=== PATIENT | female | born 1985 | race Caucasian/White ===

== ENCOUNTER → 2021-11-21 08:22 | Outpatient (BNVA) | payer BC, SELFPAY | PROVIDERS: Family Provider Family Medicine; PCP Family Medicine; Visit Provider Family Medicine | DX: Z51.81 Encounter for therapeutic drug level monitoring (principal); Z79.1 Long term (current) use of non-steroidal anti-inflammatories (NSAID); Z00.00 Encounter for general adult medical examination without abnormal findings; R53.81 Other malaise; R53.83 Other fatigue | CPT/HCPCS: 80053; 84443; 85025 ==

== ENCOUNTER → 2022-08-05 12:49 | Outpatient (BNVA) | payer BC, SELFPAY | PROVIDERS: Family Provider Family Medicine; PCP Family Medicine; Visit Provider Family Medicine | DX: Z01.419 Encounter for gynecological examination (general) (routine) without abnormal findings (principal); Z51.81 Encounter for therapeutic drug level monitoring; Z13.220 Encounter for screening for lipoid disorders | CPT/HCPCS: 88175 ==

== ENCOUNTER → 2022-09-13 10:27 | Outpatient (BNVA) | payer BC, SELFPAY | PROVIDERS: Family Provider Family Medicine; PCP Family Medicine; Visit Provider Family Medicine | DX: Z13.220 Encounter for screening for lipoid disorders (principal); Z51.81 Encounter for therapeutic drug level monitoring | CPT/HCPCS: 80053; 80061; 85025 ==

== ENCOUNTER 2022-10-16 08:16 | Emergency (ER) | payer BC, SELFPAY ==
--- NOTE | 2022-10-16 08:32 | XR_ITS ---
WS: [id number] Exam: XR chest 1V portable [id number] Date/Time of Exam: 10/16/2022 8:33 AM Reason For Exam: chest pain No priors. The lungs are clear and fully inflated. Normal cardiomediastinal silhouette for technique. No pleural effusions. Regional bony structures are intact. Monitoring leads superimpose the chest. XR/XR chest 1V portable [id number] IMPRESSION: 1. No acute cardiopulmonary finding.
--- NOTE | 2022-10-16 08:33 | ECG_ITS ---
[facility] Test Date: 2022-10-16 Pat Name: Chio Kidd Department: Room: Gender: Female Record Retrieval Specialist: : 1985 Requested By: Doris Peña Order Number: [id number] Babcock MD: Augustine Gonzales M.D. Measurements Intervals [place] Rate: 67 P: 52 CT: 138 QRS: 29 QRSD: 88 T: 41 QT: 370 QTc: 391 Interpretive Statements SINUS RHYTHM No previous ECG available for comparison Electronically Signed On 10-16-2022 10:58:20 CDT by Augustine Gonzales M.D. [email or web address]
--- NOTE | 2022-10-16 08:33 | ED_ITS ---
HPI - Chest Pain General: Chief Complaint: Chest Pain Stated Complaint: left side pain in chest Time Seen by Provider: 10/16/22 08:17 Source: patient Mode of arrival: ambulatory Limitations: no limitations History of Present Illness: Patient is a 37-year-old female presents to ED today with a complaint of left- sided chest pain that began at roughly 1:30 AM this morning. Patient states pain has been fairly constant since onset. She does feel like the left arm is experiencing some paresthesias. Patient states she is hoping it is just a strained muscle as she has been lifting weights and did chest day on Friday. She states she does not overly feel short of breath. 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 She does not complain of any lower extremity swelling or calf pain. No previous cardiac or pulmonary history. She has not noticed any color or temperature changes to her upper extremities. MD complaint: chest discomfort Onset (ago): hour(s) Timing of current episode: constant Prior episodes: No Onset: during rest Pain location: left chest Pain radiation: left arm Quality: aching Relieving factors: nothing Exacerbating factors: nothing Context: recent travel Associated symptoms: Deny abdominal pain, dyspnea, fever(s), nausea, palpitations, syncope or vomiting Treatment prior to arrival: none Risk Factors: Coronary artery disease risk factors: none Thoracic aortic dissection risk factors: none Related Data: On Oral Contraceptives: No Review of Systems Const: Denies: fever(s), chills, body aches, fatigue or malaise Eyes: Denies: change in vision or blurry vision Card: Reports: chest pain; Denies: palpitations, irregular heart rhythm, edema, swelling of feet/ankles, lightheadedness, syncope, pre-syncope, dyspnea on exertion, orthopnea, leg pain with exertion or acrocyanosis Resp: Denies: dyspnea, productive cough, non-productive cough, wheezing, stridor, pain on inspiration, change in phlegm color, hemoptysis or chest congestion GI: Denies: abdominal pain, nausea, vomiting, heartburn or diarrhea : Denies: flank pain or dysuria Musc: Denies: neck pain, back pain, extremity pain, extremity swelling, joint pain, joint swelling, joint redness, joint warmth or limited range of motion Skin/Breast: Denies: rash Neuro: Reports: sensory changes (L arm); Denies: headache(s), numbness in extremities or weakness in extremities PFSH ED PFSH: Medical History PCOS (polycystic ovarian syndrome) Surgical History H/O LEEP 2009 Family History Family/Other Cancer Breast cancer Social History Smoking and tobacco status: former smoker Quit status (tobacco): has quit using tobacco Year quit tobacco: 2011 Former quit date comment: 5 pack year history Alcohol intake: current Alcohol intake frequency: few times a month Physical Exam Const: COMMON NORMALS: no acute distress, patient oriented x3, no limitations, alert and well nourished GENERAL APPEARANCE: cooperative NUTRITIONAL APPEARANCE: obese ORIENTATION/CONSCIOUSNESS: Yes awake, Yes oriented to person, Yes oriented to place and Yes oriented to time HENMT: COMMON NORMALS: normocephalic and atraumatic HEAD & SCALP: normal to inspection, normocephalic and atraumatic Neck/C-Spine: COMMON NORMALS: no JVD Chest: COMMONS NORMALS: normal inspection of the chest and normal palpation of entire chest wall Resp: COMMON NORMALS: normal respiratory effort and clear to auscultation bilaterally AUSCULTATION: clear to auscultation bilaterally Cardio: COMMON NORMALS: no JVD, regular rate and regular rhythm RATE: regular rate RHYTHM: regular rhythm Back/Pelvis: COMMON NORMALS: thoracic and lumbar spine normal to inspection, no thoracic nor lumbar tenderness and thoraco-lumbar ROM normal Extremity: COMMON NORMALS: normal to inspection, full ROM, capillary refill normal, no joint enlargement, no clubbing, cyanosis or edema, no calf tenderness and no pedal edema GENERAL: Yes normal exam except as noted Neuro: FRED COMA SCALE: document GCS findings White coma scale eye opening: Spontaneous White coma scale verbal response: Orientated Fred coma scale motor response: Obey commands Fred coma scale total score: 15 COMMON NORMALS: patient oriented x3, moves all extremities, no focal motor deficits and no sensory deficits noted SENSORIUM/ORIENTATION: Yes alert, Yes oriented to person, Yes oriented to place and Yes oriented to time MOTOR EXAM: 5/5 motor strength present throughout Skin: COMMON NORMALS: no rashes or lesions noted GENERAL SKIN EXAM: no rashes or lesions noted TRAUMA: no lacerations or abrasions Course Vital Signs: Vital signs: Vital Signs Temperature 98.2 F 10/16/22 08:34 Pulse Rate 71 10/16/22 08:52 Respiratory Rate 16 10/16/22 08:52 Blood Pressure 182/96 10/16/22 08:52 Pulse Oximetry 97 10/16/22 08:52 Oxygen Delivery Me thod Room Air 10/16/22 08:52 MDM - Chest Pain Medical Decision Making Patient appears in no acute distress. Her vital signs are stable apart from hypertension. Recommend she keep a blood pressure log at home and if readings are consistently high speak to her primary care provider about hypertensive medications. Blood work including baseline troponin and D-dimer are negative. EKG showing no ischemic changes. CXR is normal. Repeat troponin not needed due to length of symptoms. Patient was encouraged to follow-up with her primary care provider at the end of the week for reevaluation. Strict return ED precautions given. Lab Data 10/16/22 08:49 10/16/22 08:49 Radiology Impressions Chest X-Ray 10/16/22 08:32 IMPRESSION: 1. No acute cardiopulmonary finding. Laboratory Results WBC 6.8 10^3/uL (4.0-10.0) 10/16/22 08:49 RBC 5.01 10^6/uL (4.1-5.3) 10/16/22 08:49 Hgb 14.7 g/dL (11.5-15.3) 10/16/22 08:49 Hct 45.2 % (37.0-47.0) 10/16/22 08:49 MCV 90.2 fl (81-99) 10/16/22 08:49 MCH 29.3 pg (28.0-34.0) 10/16/22 08:49 MCHC 32.5 g/dL (30.0-36.0) 10/16/22 08:49 RDW 13.7 % (12.1-15.1) 10/16/22 08:49 Plt Count 291 10^3/cmm (130-400) 10/16/22 08:49 MPV 11.1 fL (7.4-10.4) H 10/16/22 08:49 Neut % (Auto) 62.5 % 10/16/22 08:49 Lymph % (Auto) 27.6 % 10/16/22 08:49 [place] % (Auto) 6.9 % 10/16/22 08:49 Eos % (Auto) 2.3 % 10/16/22 08:49 Baso % (Auto) 0.6 % 10/16/22 08:49 Neut # (Auto) 4.27 10^3/uL (1.8-7.7) 10/16/22 08:49 Lymph # (Auto) 1.9 10^3/uL (0.8-4.8) 10/16/22 08:49 [place] # (Auto) 0.5 10^3/uL (0.2-0.9) 10/16/22 08:49 Eos # (Auto) 0.2 10^3/uL (0.0-0.8) 10/16/22 08:49 Baso # (Auto) 0.0 10^3/uL (0.0-0.1) 10/16/22 08:49 Nucleated RBC % (auto) 0 % 10/16/22 08:49 Nucleated RBCs # 0.0 /100WBC 10/16/22 08:49 D-Dimer <= 0.27 ug/mIFEU (0-0.59) 10/16/22 08:49 Sodium 141 mmol/L (136-145) 10/16/22 08:49 Potassium 4.1 mmol/L (3.5-5.1) 10/16/22 08:49 Chloride 105 mmol/L (98-107) 10/16/22 08:49 Carbon Dioxide 24 mmol/L (22-29) 10/16/22 08:49 Anion Gap 16.1 (5-19) 10/16/22 08:49 BUN 13 mg/dL (6-20) 10/16/22 08:49 Creatinine 0.6 mg/dL (0.5-0.9) 10/16/22 08:49 GFR Calculation 112.5 mL/min (90-130) 10/16/22 08:49 Glucose 80 mg/dL (65-115) 10/16/22 08:49 Calculated Osmolality 291 mOsm/kg (285-295) 10/16/22 08:49 Calcium 9.4 mg/dL (8.5-10.5) 10/16/22 08:49 Total Bilirubin 0.2 mg/dL (0.15-1.2) 10/16/22 08:49 AST 15 U/L (0-32) 10/16/22 08:49 ALT 15 U/L (0-33) 10/16/22 08:49 Alkaline Phosphatase 75 U/L (35-105) 10/16/22 08:49 Troponin T Baseline 6 ng/L (0-10) 10/16/22 08:49 Total Protein 7.2 g/dL (6.6-8.7) 10/16/22 08:49 Albumin 4.8 g/dL (3.5-5.2) 10/16/22 08:49 Globulin 2.4 g/dL (1.3-4.6) 10/16/22 08:49 Discharge Plan Discharge Patient Disposition: Home Clinical Impression: Atypical chest pain Condition: Stable Prescriptions: No Action triamcinolone acetonide 0.1 % cream 1 applic topical DAILY Qty: 30 6RF Probio5 See Rx Instructions .ROUTE .COMPLEX Qty: 60 12RF Rx Instructions: Take 2 units PO BID Plexus Slim See Rx Instructions .ROUTE .COMPLEX Qty: 30 12RF Rx Instructions: Take 1 packet PO daily; Bio Cleanse See Rx Instructions .ROUTE .COMPLEX Qty: 120 12RF Rx Instructions: Take 2 capsules PO BID; Discharge Orders: Discharge ED (Routine); Ordered 10/16/22 Ordered By: Doris Peña Referrals: Nacho Morley MD [Primary Care Provider] - Patient Instructions: Chest Pain (DC) Coding Level of Care Code ED Baggage Security Checker for [facility]ala Lopez
[2022-10-16 08:34] VITALS: BP 182/96; PULSE 72; RESP 17; TEMP 36.8; O2SAT 97; BMI 40.7
[2022-10-16 08:37] VITALS: BP 182/96; PULSE 68; RESP 17; O2SAT 98
[2022-10-16 08:52] VITALS: BP 182/96; PULSE 71; RESP 16; O2SAT 97
[2022-10-16 09:08] LABS: Basophils % 0.6 %; Eosinophils # 0.2 10^3/uL (0.0-0.8); Eosinophils % 2.3 %; Hematocrit 45.2 % (37.0-47.0); Hemoglobin 14.7 g/dL (11.5-15.3); Lymphocytes # 1.9 10^3/uL (0.8-4.8); Lymphocytes % 27.6 %; Mean Corpuscular HGB Conc 32.5 g/dL (30.0-36.0); Mean Corpuscular Hemoglobin 29.3 pg (28.0-34.0); Mean Corpuscular Volume 90.2 fl (81-99); Mean Platelet Volume 11.1 fL (7.4-10.4); Monocytes # 0.5 10^3/uL (0.2-0.9); Monocytes % 6.9 %; Neutrophils # 4.27 10^3/uL (1.8-7.7); Neutrophils % 62.5 %; Nucleated Red Blood Cells % 0 %; Platelet Count 291 10^3/cmm (130-400); Red Blood Count 5.01 10^6/uL (4.1-5.3); Red Cell Distribution Width 13.7 % (12.1-15.1); White Blood Count 6.8 10^3/uL (4.0-10.0)
[2022-10-16 09:57] LABS: Troponin(5th) Baseline 6 ng/L (0-10)
[2022-10-16 09:58] LABS: Alanine Aminotransferase 15 U/L (0-33); Albumin Level 4.8 g/dL (3.5-5.2); Alkaline Phosphatase 75 U/L (35-105); Anion Gap 16.1 (5-19); Aspartate Amino Transferase 15 U/L (0-32); Blood Urea Nitrogen 13 mg/dL (6-20); Calcium 9.4 mg/dL (8.5-10.5); Carbon Dioxide 24 mmol/L (22-29); Chloride 105 mmol/L (98-107); Globulin 2.4 g/dL (1.3-4.6); Glomerular Filtration Rate 112.5 mL/min (90-130); Glucose 80 mg/dL (65-115); Osmolality Calculated 291 mOsm/kg (285-295); Potassium 4.1 mmol/L (3.5-5.1); Sodium 141 mmol/L (136-145); Total Bilirubin 0.2 mg/dL (0.15-1.2); Total Protein 7.2 g/dL (6.6-8.7)
[2022-10-16 10:16] LABS: D Dimer <= 0.27 ug/mIFEU (0-0.59)
[2022-10-16 10:46] VITALS: BP 182/96; PULSE 71; RESP 16; O2SAT 97
== END 2022-10-16 10:47 | disposition home or self-care (01) ==
PROVIDERS: Emergency Provider Physician Assistant; PCP Family Medicine
DX: R07.89 Other chest pain (principal); Z87.891 Personal history of nicotine dependence
CPT/HCPCS: 71045; 80053; 84484; 85025; 85378; 93005; 99285

== ENCOUNTER → 2023-07-07 12:26 | Outpatient (BNVA) | payer OTHER, SELFPAY | PROVIDERS: PCP Family Medicine; Visit Provider Family Medicine | DX: Z01.419 Encounter for gynecological examination (general) (routine) without abnormal findings (principal); Z51.81 Encounter for therapeutic drug level monitoring; E03.9 Hypothyroidism, unspecified; E55.9 Vitamin D deficiency, unspecified; E66.01 Morbid (severe) obesity due to excess calories; Z68.41 Body mass index [BMI] 40.0-44.9, adult | CPT/HCPCS: 80053; 82306; 84439; 84443; 85025; 87624 ==